=== PATIENT | female | born 1960 ===

== ENCOUNTER 2019-09-02 09:30 | Inpatient (IN) | payer OTHER ==
[~2019-09-02] VITALS: Ht 152.4 cm; Wt 88.5 kg
[2019-09-02] MEDS ORDERED: TIAZAC240 MG PO (11:54)
[2019-09-02] MEDS ORDERED: COZAAR25 MG PO (11:54)
[2019-09-02] MEDS ORDERED: HYDROCHLOROTHIA25 MG PO (11:55)
[2019-09-02] MEDS ORDERED: ETODOLAC500 M1 PO (11:56)
[2019-09-02] MEDS ORDERED: MELATONIN5 M3 PO (11:56)
[2019-09-02] MEDS ORDERED: VITAMIN D5000 UNIT PO (11:57)
[2019-09-02] MEDS ORDERED: OMEGA-31000 MG PO (11:57)
[2019-09-02] MEDS ORDERED: TURMERIC 500 M1 EACH PO (11:57)
== END 2019-09-09 11:03 | disposition home or self-care (01) | DRG 743 ==
LOC: O/R 09:30 → SURH 09-08 09:30 → OB/GYN 09-08 13:42
PROVIDERS: ADMIT Obstetrics & Gynecology Gynecologic Oncology
PROC: 0UT94ZZ Resection of Uterus, Percutaneous Endoscopic Approach (ICD-10-PCS; 2019-09-08)
PROC: 0UT24ZZ Resection of Bilateral Ovaries, Percutaneous Endoscopic Approach (ICD-10-PCS; 2019-09-08)
PROC: 0UT94ZZ Resection of Uterus, Percutaneous Endoscopic Approach (ICD-10-PCS; principal; 2019-09-08 09:45)
DX: D25.1 Intramural leiomyoma of uterus (principal); D25.2 Subserosal leiomyoma of uterus; N72 Inflammatory disease of cervix uteri

== ENCOUNTER 2021-06-29 08:00 | Inpatient (IN) | payer OTHER ==
[~2021-06-29] VITALS: Ht 152.4 cm; Wt 77.6 kg
[~2021-06-29 08:00] MED LIST: COZAAR25 MG PO; ETODOLAC500 M1 PO; HYDROCHLOROTHIA25 MG PO; MELATONIN5 M3 PO; OMEGA-31000 MG PO; TIAZAC240 MG PO; TURMERIC 500 M1 EACH PO; VITAMIN D5000 UNIT PO
[2021-06-29] MEDS ORDERED: PROBIOTIC1 EAC2 PO (10:47)
[2021-07-07] MEDS ORDERED: ELIQUIS2.5 MG PO (16:24)
[2021-07-07] MEDS ORDERED: DUI500 PO (16:24)
[2021-07-07] MEDS ORDERED: ACETAMINOPHEN-1 EAC2 PO (16:24)
== END 2021-07-07 17:36 | disposition home or self-care (01) | DRG 470 ==
LOC: SURH 07-05 05:57 → O/R 07-05 05:57 → SURH 07-05 08:00
PROVIDERS: ADMIT Orthopaedic Surgery; ATTEND Orthopaedic Surgery
PROC: 0SRC0J9 Replacement of Right Knee Joint with Synthetic Substitute, Cemented, Open Approach (ICD-10-PCS; principal; 2021-07-05 13:00)
DX: M17.11 Unilateral primary osteoarthritis, right knee (principal); I10 Essential (primary) hypertension